=== PATIENT | female | born 1990 | race Two or more races ===

== ENCOUNTER 2018-03-23 11:31 | Emergency (ER) | payer SELFPAY ==
[2018-03-23 11:38] VITALS: BP 115/74
--- NOTE | 2018-03-23 12:04 | ER Document Report ---
HPI - HPI Patient complains to provider of: left ankle pain Onset: Yesterday Onset/Duration: Sudden, Persistent Quality of pain: Achy Severity: Severe Pain Level: 5 Context: Patient presents emergency department with complaints of left ankle pain. Patient reports yesterday when she was walking into her trailer she slipped and fell and heard a bone crack. She reports pain since that time. Patient has been able to walk on the ankle but reports really painful. Patient also has an abrasion to her left knee in her left elbow. Associated Symptoms: None Exacerbated by: Movement, Walking Relieved by: Denies Similar symptoms previously: No Recently seen / treated by doctor: No - CONSTITUTIONAL Constitutional: DENIES: Fever, Chills - EENT EENT: DENIES: Sore Throat, Ear Pain, Eye problems - NEURO Neurology: DENIES: Headache, Weakness, Vision blurred, Dizzinesss / Vertigo - CARDIOVASCULAR Cardiovascular: DENIES: Chest pain - RESPIRATORY Respiratory: DENIES: Trouble Breathing, Coughing - GASTROINTESTINAL Gastrointestinal: DENIES: Abdominal Pain, Black / Bloody Stools - URINARY Urinary: DENIES: Dysuria, Urgency, Frequency - MUSCULOSKELETAL Musculoskeletal: REPORTS: Extremity pain Past Medical History - General Information source: Patient Last Menstrual Period: , irregular - Social History Smoking Status: Never Smoker Chew tobacco use (# tins/day): No Frequency of alcohol use: None Drug Abuse: None Lives with: Family Family History: None Patient has suicidal ideation: No Patient has homicidal ideation: No - Medical History Medical History: Negative Renal/ Medical History: Denies: Hx Peritoneal Dialysis Surgical Hx: Negative Vertical Provider Document - CONSTITUTIONAL Agree With Documented VS: Yes Exam Limitations: No Limitations General Appearance: WD/WN, Mild Distress - winces when ankle palpated - INFECTION CONTROL TRAVEL OUTSIDE OF THE [place] IN LAST 30 DAYS: No - HEENT HEENT: Atraumatic, Normocephalic - NECK Neck: Normal Inspection, Supple - RESPIRATORY Respiratory: No Respiratory Distress - CARDIOVASCULAR Cardiovascular: Regular Rate - MUSCULOSKELETAL/EXTREMETIES Musculoskeletal/Extremeties: MAEW, FROM, Tender - left ankle laterally swollen, good pedal pulse, good cap refill - NEURO Level of Consciousness: Awake, Alert, Appropriate Motor/Sensory: No Motor Deficit - DERM Integumentary: Warm, Dry Adult Front & Back Diagram: 1 - ttp, swollen Course - Re-evaluation Re-evalutation: 03/23/18 12:03 Patient speaks Thai. Edward was utilized, [id number] was instructed on the pending xray. Patient reports she has someone at home that can read liberian. Abrasions on the knee and elbow cleaned negative of x-ray. Patient placed in an ankle stirrup splint and given crutches. Patient reports she does understand some Gabonese and understands all my instructions. - Vital Signs Vital signs: Temp Pulse Resp BP Pulse Ox 98.2 F 81 16 115/74 97 03/23/18 11:35 03/23/18 11:35 03/23/18 11:35 03/23/18 11:35 03/23/18 11:35 - Diagnostic Test Radiology reviewed: Image reviewed, Reports reviewed - Diagnostic report text EXAM DESCRIPTION: ANKLE LEFT COMPLETE COMPLETED DATE/TIME: 03/23/2018 12:20 pm REASON FOR STUDY: pain, swelling, fell COMPARISON: None. NUMBER OF VIEWS : Three views left ankle LIMITATIONS: None. FINDINGS: Normal bone density without evidence of fracture or bone lesion. No effusion. Mild soft tissue swelling. Mortise intact. OTHER: No other significant finding. IMPRESSION: No fracture. Mild soft tissue swelling Procedures - Immobilization Left Ankle Pre-Proc Neuro Vasc Exam: Normal Immobilizer type: Ankle stirrup Performed by: JAZMIN arias Post-Proc Neuro Vasc Exam: Unchanged from pre-exam Alignment checked and good: Yes Discharge - Discharge Clinical Impression: Left ankle pain Qualifiers: Chronicity: acute Qualified Code(s): M25.572 - Pain in left ankle and joints of left foot Condition: Stable Disposition: HOME, SELF-CARE Instructions: Ankle Stirrup Splint ([facility]), Use of Crutches ([facility]), Ibuprofen ( General) ([facility]), Ice & Elevation ([facility]) Additional Instructions: *You have been evaluated for an ankle injury *Rest/Ice/Elevate your ankle *Maintain the splint *Use your crutches for three days *Follow up with orthopedics within 5 days-call for an appointment *Take medication as prescribed *Return to ED for worsening condition, changes, needs Prescriptions: Ibuprofen [Motrin 800 mg Tablet] 800 mg PO TID #30 tablet Referrals: [facility] ([facility]) [Provider Group] - Follow up in 3-5 days Print Language: Thai
--- NOTE | 2018-03-23 12:52 | RADIOLOGY REPORT (SQ) ---
EXAM DESCRIPTION: ANKLE LEFT COMPLETE COMPLETED DATE/TIME: 03/23/2018 12:20 pm REASON FOR STUDY: pain, swelling, fell COMPARISON: None. NUMBER OF VIEWS: Three views left ankle LIMITATIONS: None. FINDINGS: Normal bone density without evidence of fracture or bone lesion. No effusion. Mild soft tissue swelling. Mortise intact. OTHER: No other significant finding. IMPRESSION: No fracture. Mild soft tissue swelling. TECHNICAL DOCUMENTATION: JOB ID: [id number] Reading location - IP/workstation name: [email or web address]
[2018-03-23] MEDS ORDERED: IBUPROFEN 800 MG TABLET PO ONE (12:57)
== END 2018-03-23 13:20 | disposition home or self-care (01) ==
LOC: ER 11:31 → EDBD 11:31 → ER 13:20
DX: M25.572 Pain in left ankle and joints of left foot (principal); S80.212A Abrasion, left knee, initial encounter; S50.312A Abrasion of left elbow, initial encounter; W10.9XXA Fall (on) (from) unspecified stairs and steps, initial encounter; Y92.029 Unspecified place in mobile home as the place of occurrence of the external cause
CPT/HCPCS: 99283; 73610; L4350